=== PATIENT | female | born 1960 | race Caucasian/White ===

== ENCOUNTER 2017-04-18 04:59 | Emergency (ER) | payer OTHER ==
[2017-04-18 05:36] LABS: Basophils # (A) 0.1 k/uL (0-0.2); Basophils % (A) 0 %; CH 31.1; CHCM 35.1; Eosinophils # (A) 0.2 k/uL (0-0.7); Eosinophils % (A) 2 %; HCT 43.8 % (34.0-46.0); HDW 2.77; HGB 14.6 gm/dL (11.4-16.0); Luc # (Auto) 0.21; Luc % (Auto) 2; Lymphocytes # (A) 1.4 k/uL (1.0-4.8); Lymphocytes % (A) 11 %; MCH 29.6 pg (25.0-35.0); MCHC 33.2 g/dL (31.0-37.0); MCV 89.2 fL (80.0-100.0); Mean Platelet Volume 7.3; Monocytes % (A) 7 %; Neutrophils # (A) 10.2 k/uL (1.3-7.7); Neutrophils % (A) 78 %; RBC 4.91 m/uL (3.80-5.40); WBC 13.1 k/uL (3.8-10.6); WBC (Perox) 13.06
[2017-04-18 05:38] LABS: Appearance,Urine Cloudy (Clear); Bacteria,Urine Rare /hpf; Bilirubin,Urine Negative (Negative); Glucose,Urine (UA) Negative (Negative); Ketones,Urine Negative (Negative); Leukocyte Esterase,Urine Large (Negative); Mucus,Urine Occasional /hpf; Nitrite,Urine Negative (Negative); PH, Urine 6.5 (5.0-8.0); Particle Count 2672; Protein,Urine Negative (Negative); RBC,Urine 14 /hpf (0-5); Squamous Epithelial Cell,Urine 2 /hpf (0-4); UA Billing (MACRO vs. MICRO) MICRO; Urobilinogen,Urine <2.0 mg/dL (<2.0); WBC,Urine 29 /hpf (0-5)
[2017-04-18 05:48] LABS: Calcium 10.7 mg/dL (8.4-10.2); Total Bilirubin 0.4 mg/dL (0.2-1.3); Total Protein 7.2 g/dL (6.3-8.2)
[2017-04-18 05:57] LABS: Potassium 2.9 mmol/L (3.5-5.1)
[2017-04-18] MEDS ORDERED: KETOROLAC 30 MG/ML 1 ML VIAL IVP STA (06:05)
[2017-04-18] MEDS ORDERED: MORPHINE SULFATE 4 MG/ML SYRINGE IV STA (06:05)
[2017-04-18] MEDS ORDERED: ONDANSETRON 4 MG/2 ML VIAL IVP STA (06:05)
--- NOTE | 2017-04-18 06:11 | ED ---
Abdominal Pain HPI - General Source: patient Mode of arrival: ambulatory Limitations: no limitations - History of Present Illness MD Complaint: abdominal pain, flank pain Onset/Timin -: hour(s) Location: R flank Radiation: other (Right groin) Migration to: no migration Severity: severe Quality: sharp Consistency: colicky Improves With: nothing Worsens With: nothing Associated Symptoms: nausea, vomiting <Mario Mackenzie - Last Filed: 04/18/17 06:08> <Ruben Mckeon - Last Filed: 04/18/17 08:57> - General Chief Complaint: Abdominal Pain Stated Complaint: Possible Kidney Stone Time Seen by Provider: 04/18/17 05:10 - History of Present Illness Initial Comments: This patient is a 56-year-old woman who presents to be evaluated for flank pain. The patient states that she was awakened from sleep with the pain this morning little after 2 AM. She indicates the pain is in the right flank and going towards his right groin. She states it does remind her of last time she had a kidney stone. She states she also had some vomiting associated. She states that she cannot find a comfortable position. (Mario Mackenzie) - Related Data Previous Rx's Medication Instructions Recorded HYDROcodone/APAP 5-325MG [[place] 1 tab PO Q6HR PRN #24 tab 04/18/17 5-325] Potassium Chloride ER [K-Dur 20] 20 meq PO DAILY #7 tab 04/18/17 Sulfamethox-Tmp 800-160Mg [Bactrim 1 tab PO Q12HR #28 tab 04/18/17 DS 800-160 mg] Tamsulosin HCl [Flomax] 0.4 mg PO DAILY #30 cap 04/18/17 Allergies Allergy/AdvReac Type Severity Reaction Status Date / Time lisinopril Allergy Cough Verified 04/18/17 05:07 nitrofurantoin Allergy Rash/Hives Verified 04/18/17 05:07 [From Macrodantin] Review of Systems ROS Other: All systems not noted in ROS Statement are negative. Constitutional: Denies: fever, chills Respiratory: Denies: cough, dyspnea Cardiovascular: Denies: chest pain, palpitations, edema Gastrointestinal: Reports: as per HPI, abdominal pain, nausea, vomiting. Denies : diarrhea, melena, hematochezia Genitourinary: Denies: dysuria, hematuria Musculoskeletal: Denies: back pain Skin: Denies: rash Neurological: Denies: headache <AvrilMario - Last Filed: 04/18/17 06:08> ROS Other: All systems not noted in ROS Statement are negative. <Ruben Mckeon - Last Filed: 04/18/17 08:57> ROS Statement: Those systems with pertinent positive or pertinent negative responses have been documented in the HPI. Past Medical History Past Medical History: Hypertension Additional Past Medical History / Comment(s): kidney stones History of Any Multi-Drug Resistant Organisms: None Reported Additional Past Surgical History / Comment(s): lithotripsy Past Psychological History: No Psychological Hx Reported Smoking Status: Never smoker Past Alcohol Use History: Rare Past Drug Use History: None Reported <AvrilMario - Last Filed: 04/18/17 06:08> General Exam Limitations: no limitations General appearance: alert, in no apparent distress Head exam: Present: atraumatic, normocephalic Eye exam: Present: normal appearance. Absent: scleral icterus, conjunctival injection Respiratory exam: Present: normal lung sounds bilaterally. Absent: respiratory distress, wheezes, rales, rhonchi, stridor Cardiovascular Exam: Present: regular rate, normal rhythm, normal heart sounds. Absent: systolic murmur, diastolic murmur, rubs, gallop GI/Abdominal exam: Present: soft. Absent: distended, tenderness, guarding, rebound, mass, pulsatile mass, hernia Extremities exam: Present: normal inspection, normal capillary refill. Absent: pedal edema, calf tenderness Back exam: Present: normal inspection, CVA tenderness (R). Absent: CVA tenderness (L) Neurological exam: Present: alert Skin exam: Present: warm, dry, intact, normal color. Absent: rash <AvrilMario - Last Filed: 04/18/17 06:08> Medical Decision Making - Lab Data Result diagrams: 04/18/17 05:18 04/18/17 05:18 <Mario Mackenzie - Last Filed: 04/18/17 06:08> - Lab Data Result diagrams: 04/18/17 05:18 04/18/17 05:18 <Ruben Mckeon - Last Filed: 04/18/17 08:57> - Medical Decision Making 56-year-old female with history of kidney stones presents with right flank pain radiating to her groin. Patient's care was signed out from previous physician awaiting CT and lab results. CT was obtained shows 5 mm stone in the mid right ureter with mild hydronephrosis and hydroureter. Patient does have some mild signs of urinary tract infection and hematuria on urinalysis. Urine culture is obtained. Patient is pain-free on reevaluation. She did have 2 episodes of vomiting prior to arrival, or she's had no vomiting while in the emergency department. Creatinine is 1.5, no known baseline. Patient receives IV hydration and first dose of antibiotics while in the emergency department. I discussed the CT findings and laboratory results with the patient's urologist Dr. Carrizales, but feel the patient is stable for discharge. She will continue oral rehydration, she'll be started on oral antibiotics, given pain control and Flomax. She will call to make an appointment on Thursday. Patient is agreeable with this plan. Additional laboratory studies to reveal a potassium of 2.9 which is replaced. Diagnosis: Right kidney stone, mild hydronephrosis (Ruben Mckeon) - Lab Data Lab Results 04/18/17 04/18/17 04/18/17 Range/Units 05:10 05:18 05:18 WBC 13.1 H (3.8-10.6) k/uL RBC 4.91 (3.80-5.40) m/uL Hgb 14.6 (11.4-16.0) gm/dL Hct 43.8 (34.0-46.0) % MCV 89.2 (80.0-100.0) fL MCH 29.6 (25.0-35.0) pg MCHC 33.2 (31.0-37.0) g/dL RDW 15.0 (11.5-15.5) % Plt Count 286 (150-450) k/uL Neutrophils % 78 % Lymphocytes % 11 % Monocytes % 7 % Eosinophils % 2 % Basophils % 0 % Neutrophils # 10.2 H (1.3-7.7) k/uL Lymphocytes # 1.4 (1.0-4.8) k/uL Monocytes # 1.0 (0-1.0) k/uL Eosinophils # 0.2 (0-0.7) k/uL Basophils # 0.1 (0-0.2) k/uL Sodium 141 (137-145) mmol/L Potassium 2.9 L* (3.5-5.1) mmol/L Chloride 104 (98-107) mmol/L Carbon Dioxide 24 (22-30) mmol/L Anion Gap 13 mmol/L BUN 34 H (7-17) mg/dL Creatinine 1.50 H (0.52-1.04) mg/dL Est GFR (MDRD) Af Amer 44 (>60 ml/min/1.73 sqM) Est GFR (MDRD) Non-Af 36 (>60 ml/min/1.73 sqM) Glucose 130 H (74-99) mg/dL Calcium 10.7 H (8.4-10.2) mg/dL Total Bilirubin 0.4 (0.2-1.3) mg/dL AST 24 (14-36) U/L ALT 38 (9-52) U/L Alkaline Phosphatase 75 (38-126) U/L Total Protein 7.2 (6.3-8.2) g/dL Albumin 4.2 (3.5-5.0) g/dL Amylase 132 H (30-110) U/L Lipase 235 (23-300) U/L Urine Color Light Yellow Urine Appearance Cloudy H (Clear) Urine pH 6.5 (5.0-8.0) Ur Specific [place] 1.010 (1.001-1.035) Urine Protein Negative (Negative) Urine Glucose (UA) Negative (Negative) Urine Ketones Negative (Negative) Urine Blood Small H (Negative) Urine Nitrite Negative (Negative) Urine Bilirubin Negative (Negative) Urine Urobilinogen <2.0 (<2.0) mg/dL Ur Leukocyte Esterase Large H (Negative) Urine RBC 14 H (0-5) /hpf Urine WBC 29 H (0-5) /hpf Ur Squamous Epith Cells 2 (0-4) /hpf Urine Bacteria Rare H (None) /hpf Urine Mucus Occasional H (None) /hpf Disposition <Mario Mackenzie - Last Filed: 04/18/17 06:08> <Ruben Mckeon - Last Filed: 04/18/17 08:57> Clinical Impression: Calculus of kidney, Renal colic on right side, Hypokalemia Disposition: HOME SELF-CARE Condition: Good Instructions: Hypokalemia (ED), Kidney Stones (ED) Prescriptions: HYDROcodone/APAP 5-325MG [[place] 5-325] 1 tab PO Q6HR PRN #24 tab PRN Reason: Pain Potassium Chloride ER [K-Dur 20] 20 meq PO DAILY #7 tab Sulfamethox-Tmp 800-160Mg [Bactrim DS 800-160 mg] 1 tab PO Q12HR #28 tab Tamsulosin HCl [Flomax] 0.4 mg PO DAILY #30 cap Referrals: Feliciano Galeano MD [Primary Care Provider] - 1-2 days Edi Carrizales MD [STAFF PHYSICIAN] - 1-2 days
--- NOTE | 2017-04-18 06:27 | XR ---
EXAM: XR Abdomen, 1 View CLINICAL HISTORY: Reason: Pt. Woke up with sudden onset of Right Flank Pain. This a.m. Hx. Of kidney stones with lithotripsy TECHNIQUE: Frontal supine view of the abdomen/pelvis. COMPARISON: None FINDINGS: Abdomen: Nonobstructive bowel gas pattern. No free air. Cholecystectomy clips in the right upper quadrant. Moderate stool predominantly in the right colon. Nonspecific small densities projected over the right lower abdomen and nonspecific densities just superior to the left sacrum. Bones: Normal. Soft tissues: Probable calcified fibroid projects over the right pelvis. Other calcification in the superior left pelvis is nonspecific. Question other calcified fibroid versus calcification within bowel. Lower chest: Normal. IMPRESSION: 1. Nonspecific small densities projected in the lower abdomen bilaterally. The densities may be within bowel. There appear to lateral to be associated with the renal collecting systems. 2. Calcified uterine fibroid in the lower right pelvis. Calcification in the superior left pelvis may be within bowel as well. 3. Nonobstructive bowel gas pattern.
--- NOTE | 2017-04-18 07:38 | CT ---
EXAMINATION TYPE: CT abdomen pelvis wo con DATE OF EXAM: 04/18/2017 COMPARISON: NONE HISTORY: Flank pain-right side CT DLP: 340.8 mGycm Automated exposure control for dose reduction was used. FINDINGS: There is dependent atelectasis within the lungs. There is no pleural or pericardial fluid. The heart is mildly enlarged. Within the abdomen, the liver is mildly prominent measuring 19 cm. The gallbladder is been removed. T he spleen is unremarkable. Both adrenal glands are normal. There is bilateral nephrolithiasis. Largest calculus is in the lower pole on the left and measures 1. 9 cm. The left kidney is largely replaced with cysts. Some of these are ring calcified. There is right-sided hydronephrosis and hydroureter. There is a 5.3 mm calculus in the mid ureter on the right. Limited views of the pancreas appears normal. There is no significant retroperitoneal, inguinal or iliac adenopathy. The bladder appears somewhat thick walled but it is not distended. There is a 3.2 cm partially calcified uterine fibroid. The ovaries are not visualized with certainty. There are scattered diverticula within the sigmoid colon. There is no radiographic evidence of divert iculitis. The appendix is unremarkable. Small bowel loops are normal. There is no free fluid and no free air. There is a degenerative grade 1 spondylolisthesis of L4 on L5. No bony destructive lesion is seen. IMPRESSION: 1. BILATERAL NEPHROLITHIASIS. 2. PARTIALLY OBSTRUCTING 5.3 MM CALCULUS IN THE MID RIGHT URETER CAUSING MILD HYDRONEPHROSIS AND HYDR OURETER. 3. LEFT KIDNEY IS LARGELY REPLACED WITH CYSTIC CHANGE. THIS SHOULD BE FURTHER ASSESSED WITH ULTRASOUN D, CONTRAST CT OR MRI. 4. MILD CARDIOMEGALY. 5. HEPATOMEGALY. 6. CALCIFIED UTERINE FIBROID. 7. MINIMAL UNCOMPLICATED DIVERTICULOSIS. 8. DEGENERATIVE CHANGES WITHIN THE SPINE.
[2017-04-18] MEDS ORDERED: POTASSIUM CHLORIDE ER 20 MEQ TAB.ER PO STA (07:52)
[2017-04-18] MEDS ORDERED: SODIUM CHLORIDE 0.9% 1,000 ML IV ONE (07:54)
[2017-04-18] MEDS ORDERED: SODIUM CHLORIDE 0.9% 1,000 ML IV SCH (08:00)
[2017-04-18 09:21] VITALS: BP 147/91; PULSE 67; RESP 18; TEMP 97.6
== END 2017-04-18 09:25 | disposition home or self-care (01) ==
LOC: EC 04:59
DX: N13.2 Hydronephrosis with renal and ureteral calculous obstruction (principal); E87.6 Hypokalemia; N23 Unspecified renal colic; N13.4 Hydroureter; R11.2 Nausea with vomiting, unspecified; Z88.1 Allergy status to other antibiotic agents; Z88.8 Allergy status to other drugs, medicaments and biological substances; Z98.890 Other specified postprocedural states
CPT/HCPCS: 99284; 96374; 96375 ×2; 96361; 36415; 80053; 82150; 83690; 85025; 81001; 87086; 74000; 74176; J2270; J2405; J0696; J1885

== ENCOUNTER 2017-04-22 06:22 | Emergency (ER) | payer OTHER ==
[2017-04-22] MEDS ORDERED: RX INFO: IV CONTRAST WAS GIVEN 1 EACH MISC MISCELLANE PRN ×2 (06:25→06:42)
[2017-04-22] MEDS ORDERED: ONDANSETRON 4 MG/2 ML VIAL IVP STA (06:46)
[2017-04-22] MEDS ORDERED: KETOROLAC 60 MG/2 ML VIAL IVP STA (06:46)
[2017-04-22] MEDS ORDERED: HYDROmorphone 1 MG/ML 1 ML SYRINGE IVP STA ×2 (06:46→07:51)
--- NOTE | 2017-04-22 06:46 | ED ---
General Adult HPI - General Source: EMS, RN notes reviewed Mode of arrival: wheelchair Limitations: no limitations <José Miguel Carolina - Last Filed: 04/22/17 06:47> <Tristin Watters - Last Filed: 04/22/17 09:12> - General Chief complaint: Back Pain/Injury Stated complaint: Back Pain Time Seen by Provider: 04/22/17 06:30 - History of Present Illness Initial comments: This is a 56-year-old female who states 4 days ago she was here in the emergency department for a kidney stone. Patient states 2 days after that she was here in the emergency department because she fell while painting and hurt her right side. Patient states the pain is gotten worse since yesterday. Patient states the pain appears to be under the right ribs in the right upper quadrant area and in the flank and lower back. Patient denies any vomiting. Patient states movement of any kind seems to make the pain worse lying still does help the pain for a while until she moves or coughs or takes a deep breath. Patient states last night she took a [place] but it did not take the pain away. Patient states this morning she developed Flexeril and a tramadol and that has not helped her. (José Miguel Carolina) - Related Data Home Medications Medication Instructions Recorded Confirmed Aspirin EC [Ecotrin Low Dose] 81 mg PO DAILY 04/20/17 04/22/17 Cholecalciferol [Vitamin D3] 5,000 unit PO DAILY 04/20/17 04/22/17 Hydrochlorothiazide [Hydrodiuril] 25 mg PO DAILY 04/20/17 04/22/17 NIFEdipine [Procardia XL] 60 mg PO DAILY 04/20/17 04/22/17 [place]-3 Fatty Acids/Fish Oil [Fish 1 cap PO DAILY 04/20/17 04/22/17 Oil 1,000 mg Softgel] Ondansetron HCl [Zofran] 4 mg PO DAILY PRN 04/22/17 04/22/17 Sulfamethox-Tmp 800-160Mg [Bactrim 1 tab PO DAILY 04/22/17 04/22/17 DS 800-160 mg] traMADol HCL [Ultram] 50 mg PO DAILY PRN 04/22/17 04/22/17 Previous Rx's Medication Instructions Recorded HYDROcodone/APAP 5-325MG [[place] 1 tab PO Q6HR PRN #24 tab 04/18/17 5-325] Potassium Chloride ER [K-Dur 20] 20 meq PO DAILY #7 tab 04/18/17 Cyclobenzaprine [Flexeril] 10 mg PO TID #15 tab 04/20/17 Tamsulosin [Flomax] 0.4 mg PO DAILY #14 cap 04/22/17 Allergies Allergy/AdvReac Type Severity Reaction Status Date / Time lisinopril Allergy Cough Verified 04/22/17 07:27 nitrofurantoin Allergy Rash/Hives Verified 04/22/17 07:27 [From Macrodantin] Review of Systems ROS Other: All systems not noted in ROS Statement are negative. <José Miguel Carolina - Last Filed: 04/22/17 06:47> ROS Other: All systems not noted in ROS Statement are negative. <Tristin Watters - Last Filed: 04/22/17 09:12> ROS Statement: Those systems with pertinent positive or pertinent negative responses have been documented in the HPI. Past Medical History Past Medical History: Hypertension Additional Past Medical History / Comment(s): kidney stones History of Any Multi-Drug Resistant Organisms: None Reported Additional Past Surgical History / Comment(s): lithotripsy Past Psychological History: No Psychological Hx Reported Smoking Status: Never smoker Past Alcohol Use History: Rare Past Drug Use History: None Reported <José Miguel Carolina - Last Filed: 04/22/17 06:47> General Exam Limitations: no limitations <José Miguel Carolina - Last Filed: 04/22/17 06:47> <Tristin Watters - Last Filed: 04/22/17 09:12> - General Exam Comments Initial Comments: GENERAL: Patient is well-developed and well-nourished. Patient is nontoxic and well- hydrated and is in mild distress. ENT: Neck is soft and supple. No significant lymphadenopathy is noted. Oropharynx is clear. Moist mucous membranes. Neck has full range of motion without eliciting any pain. EYES: The sclera were anicteric and conjunctiva were pink and moist. Extraocular movements were intact and pupils were equal round and reactive to light. Eyelids were unremarkable. PULMONARY: Unlabored respirations. Good breath sounds bilaterally. No audible rales rhonchi or wheezing was noted. CARDIOVASCULAR: There is a regular rate and rhythm without any murmurs gallops or rubs. ABDOMEN: Patient has tenderness in the right upper quadrant as well as the lateral right ribs 11 and 12. SKIN: Skin is clear with no lesions or rashes and otherwise unremarkable. NEUROLOGIC: Patient is alert and oriented x3. Cranial nerves II through XII are grossly intact. Motor and sensory are also intact. Normal speech, volume and content. Symmetrical smile. MUSCULOSKELETAL: Normal extremities with adequate strength and full range of motion. LYMPHATICS: No significant lymphadenopathy is noted PSYCHIATRIC: Normal psychiatric evaluation. (José Miguel Carolina) Medical Decision Making <José Miguel Carolina - Last Filed: 04/22/17 06:47> - Lab Data Result diagrams: 04/22/17 06:45 04/22/17 06:45 - Radiology Data Radiology results: report reviewed (Computed tomography scan of the abdomen and pelvis shows resolution of right-sided hydronephrosis and perinephric stranding. Suspect passage of right ureter calculi. 12 mm distal ureter with left sided hydronephrosis.) <Tristin Watters - Last Filed: 04/22/17 09:12> - Medical Decision Making Dr. Watters will be taking over the care of this patient at 7 AM (José Miguel Carolina) Patient again reexamined and is starting to improve at this time. Patient is able to move in bed now and has been able to get some rest. Patient is comfortable with discharge home. Patient is advised need for close follow-up with primary care physician as well as urology. (Tristin Watters) - Lab Data Lab Results 04/22/17 04/22/17 Range/Units 06:45 06:45 WBC 8.4 (3.8-10.6) k/uL RBC 4.73 (3.80-5.40) m/uL Hgb 14.3 (11.4-16.0) gm/dL Hct 42.9 (34.0-46.0) % MCV 90.7 (80.0-100.0) fL MCH 30.1 (25.0-35.0) pg MCHC 33.2 (31.0-37.0) g/dL RDW 13.6 (11.5-15.5) % Plt Count 289 (150-450) k/uL Neutrophils % 76 % Lymphocytes % 13 % Monocytes % 6 % Eosinophils % 3 % Basophils % 0 % Neutrophils # 6.4 (1.3-7.7) k/uL Lymphocytes # 1.1 (1.0-4.8) k/uL Monocytes # 0.5 (0-1.0) k/uL Eosinophils # 0.2 (0-0.7) k/uL Basophils # 0.0 (0-0.2) k/uL Sodium 144 (137-145) mmol/L Potassium 3.2 L (3.5-5.1) mmol/L Chloride 102 (98-107) mmol/L Carbon Dioxide 29 (22-30) mmol/L Anion Gap 13 mmol/L BUN 19 H (7-17) mg/dL Creatinine 1.10 H (0.52-1.04) mg/dL Est GFR (MDRD) Af Amer >60 (>60 ml/min/1.73 sqM) Est GFR (MDRD) Non-Af 52 (>60 ml/min/1.73 sqM) Glucose 119 H (74-99) mg/dL Calcium 10.6 H (8.4-10.2) mg/dL Total Bilirubin 0.5 (0.2-1.3) mg/dL AST 106 H (14-36) U/L ALT 201 H (9-52) U/L Alkaline Phosphatase 162 H (38-126) U/L Total Protein 7.6 (6.3-8.2) g/dL Albumin 4.3 (3.5-5.0) g/dL Disposition <José Miguel Carolina - Last Filed: 04/22/17 06:47> Time of Disposition: 09:11 <Tristin Watters - Last Filed: 04/22/17 09:12> Clinical Impression: Ureterolithiasis, Abdominal contusion Disposition: HOME SELF-CARE Condition: Stable Instructions: Kidney Stones (ED), Blunt Abdominal Injury (ED) Additional Instructions: Please follow-up with urology and your primary care physician in the next day or 2 for recheck. Return for fever, increased pain, vomiting, change or worsening symptoms or other concerns. Prescriptions: Tamsulosin [Flomax] 0.4 mg PO DAILY #14 cap Referrals: Feliciano Galeano MD [Primary Care Provider] - 1-2 days Edi Carrizales MD [STAFF PHYSICIAN] - 1-2 days
[2017-04-22 06:56] LABS: Basophils % (A) 0 %; CHCM 33.2; Eosinophils # (A) 0.2 k/uL (0-0.7); Eosinophils % (A) 3 %; HCT 42.9 % (34.0-46.0); HDW 2.73; HGB 14.3 gm/dL (11.4-16.0); Luc # (Auto) 0.15; Luc % (Auto) 2; Lymphocytes # (A) 1.1 k/uL (1.0-4.8); Lymphocytes % (A) 13 %; MCH 30.1 pg (25.0-35.0); MCHC 33.2 g/dL (31.0-37.0); MCV 90.7 fL (80.0-100.0); Monocytes # (A) 0.5 k/uL (0-1.0); Monocytes % (A) 6 %; Neutrophils # (A) 6.4 k/uL (1.3-7.7); Neutrophils % (A) 76 %; RBC 4.73 m/uL (3.80-5.40); RDW 13.6 % (11.5-15.5); WBC 8.4 k/uL (3.8-10.6); WBC (Perox) 8.04
[2017-04-22 07:04] LABS: ALT 201 U/L (9-52); AST 106 U/L (14-36); Alkaline Phosphatase 162 U/L (38-126); Anion Gap 13 mmol/L; Blood Urea Nitrogen 19 mg/dL (7-17); Calcium 10.6 mg/dL (8.4-10.2); Carbon Dioxide 29 mmol/L (22-30); Chloride 102 mmol/L (98-107); Glucose 119 mg/dL (74-99); Non-African American GFR(MDRD) 52 (>60 ml/min/1.73 sqM); Potassium 3.2 mmol/L (3.5-5.1); Sodium 144 mmol/L (137-145); Total Bilirubin 0.5 mg/dL (0.2-1.3); Total Protein 7.6 g/dL (6.3-8.2)
--- NOTE | 2017-04-22 07:37 | CT ---
EXAMINATION TYPE: CT abdomen pelvis w con DATE OF EXAM: 04/22/2017 HISTORY: RLQ pain and back pain CT DLP: 1556mGycm Automated Exposure Control for Dose Reduction was Utilized. CONTRAST: CT scan of the abdomen and pelvis is performed with IV Contrast, patient injected with 100 mL of Omni paque 300. COMPARISON: CT abdomen and pelvis from 4 days ago. FINDINGS: LUNG BASES: There is cardiomegaly with dependent atelectasis bilaterally, there is additional areas o f atelectasis and/or consolidation in the right lung base. Findings have progressed from prior. LIVER/GB: There is 2 cm hyperdense oval lesion right hepatic lobe laterally on axial image 18, this b ecomes isodense to draining hepatic veins on delayed phased images, suspect flash filling hemangioma. This corresponds to hypodense lesion on CT 4 days ago. PANCREAS: No significant abnormality is seen. SPLEEN: No significant abnormality is seen. ADRENALS: Slight thickening to left adrenal gland favors benign hyperplasia. KIDNEYS: There are calculi scattered throughout both kidneys. There are a few small simple appearing cysts scattered throughout right kidney. There is cortical medullary uptake and excretion from right kidney. There is advanced left-sided hydronephrosis with delayed excretion left kidney. There is redemonstrat ion of obstructing 12 mm calculus in distal left ureter on coronal image 52 unchanged in size and helena earance from prior. Suspect marked calyceal dilatation mimicking cyst, there also are likely some sim ple cortical cysts present. BOWEL: Normal-appearing appendix is seen from cecum. There is no suspicious small or large bowel dila tation identified. There is prominence of fecal material in the right colon. Evaluation bowel is subo ptimal secondary to lack of enteric contrast. There is poor distention of colon distal to splenic fle xure making evaluation at this level suboptimal. There is suggestion of suspicious focal wall thicken ing in the distal transverse colon noted on event planner image and coronal image 25 but this is favored spas m as exam 4 days ago shows no suspicious abnormality at this level. UTERUS/ADNEXA: Uterus is anteverted in shape, there is redemonstration of lobulated calcified fibroid along right aspect. LYMPH NODES: No greater than 1cm abdominal or pelvic lymph nodes are appreciated. OSSEOUS STRUCTURES: There is persistent grade 1 anterolisthesis of L4 on L5. OTHER: No significant additional abnormality is seen. IMPRESSION: 1. Note is made of a 12 mm obstructing distal ureter calculus causing advanced left-sided hydronephro sis and delayed excretion from left kidney. Interval resolution of right-sided hydronephrosis and per inephric fat stranding noted. Suspect interval passage of right ureter calculus. Clinical correlation advised. Normal-appearing appendix is noted.
[2017-04-22] MEDS ORDERED: ORPHENADRINE 30 MG/ML 2 ML VIAL IVP STA (07:51)
[2017-04-22 08:07] VITALS: PULSE 78; RESP 16
[2017-04-22 09:34] VITALS: BP 150/88; TEMP 97.8
== END 2017-04-22 09:32 | disposition home or self-care (01) ==
LOC: EC 06:22
DX: S30.1XXA Contusion of abdominal wall, initial encounter (principal); N20.1 Calculus of ureter; Z79.82 Long term (current) use of aspirin; Z79.899 Other long term (current) drug therapy; Z88.8 Allergy status to other drugs, medicaments and biological substances; W19.XXXA Unspecified fall, initial encounter; Y93.89 Activity, other specified
CPT/HCPCS: 99284; 96374; 96375 ×3; 96376; 36415; 80053; 85025; 74177; J2360; J2405; J1885; J1170; Q9967

== ENCOUNTER → 2017-06-23 | Outpatient (CLI) | payer OTHER ==
--- NOTE | 2017-06-24 07:23 | NM ---
EXAMINATION TYPE: NM renal flow and function DATE OF EXAM: 06/23/2017 COMPARISON: CT abdomen and pelvis April 22, 2017 HISTORY: Left kidney failure, left renal stent removed a few weeks ago. Following administration of 10.4 mCi Tc99m MAG3. Immediate images post injection. FINDINGS: Left: 22.4 %. Right: 77.6 %. Max renal flow left: 29 minutes. Max renal flow right: 77.6 minutes. Satisfactory accumulation of radiotracer within both renal collecting systems. T 1/2 left: NA - Not established within imaging duration parameters . T 1/2 right: 22.8 minutes . FINDINGS: Dynamic arterial images show asymmetric diminished flow and subsequent cortical medullary uptake into left kidney versus opposite right kidney. No excretion is identified in time frame observed in the l eft kidney versus the right kidney. IMPRESSION: Delayed and diminished function 2 left kidney remains present despite suspected interval treatment of left ureter calculus.
== END | disposition home or self-care (01) ==
LOC: RADNMMAIN 12:41
PROVIDERS: ATTEND Urology
DX: N13.30 Unspecified hydronephrosis (principal)
CPT/HCPCS: 78707; A9562

== ENCOUNTER → 2017-10-23 | Outpatient (CLI) | payer OTHER ==
--- NOTE | 2017-10-23 11:16 | XR ---
EXAMINATION TYPE: XR KUB DATE OF EXAM: 10/23/2017 HISTORY: Pain Comparison: None.Single KUB is submitted for interpretation. Findings: Right renal calculi: At least 2 calculi lower pole right kidney measuring up to 5 mm. Right ureteral calculi: None Visualized. Left renal calculi: Large calculus overlying the left kidney measures 2.8 x 1.2 cm. Left ureteral calculi: None Visualized. Pelvic calcifications: Large calcified leiomyoma within the pelvis. Bowel gas pattern is unremarkable. No free air. No mass effects. IMPRESSION: 1. Nephrolithiasis is noted.
== END | disposition home or self-care (01) ==
LOC: RADXRMAIN 10:33
PROVIDERS: ATTEND Urology
DX: N20.0 Calculus of kidney (principal)
CPT/HCPCS: 74018

== ENCOUNTER → 2017-11-02 | Outpatient (CLI) | payer OTHER ==
--- NOTE | 2017-11-02 21:58 | MR ---
EXAMINATION TYPE: MR lumbar spine wo/w con DATE OF EXAM: 11/02/2017 COMPARISON: CT 04/22/2017 HISTORY: 57-year-old female with low back pain and bilateral leg pain Technique: Multiplanar, multisequence images of the lumbar spine were obtained before and after admin istration of 10 mL intravenous Gadavist gadolinium contrast. FINDINGS: Vertebral body heights are preserved. Severe hypertrophic facet arthropathy lower lumbar spine with grade 1 anterolisthesis at L4-L5. Other martin, lumbar alignment is maintained. A few fatty matrix hemangioma such as within T11 and L3 vertebral bodies. No suspicious bone marrow r eplacement. Conus medullaris is normal. Mild degenerative disc disease L3-L4 and L4-L5 characterized by variable disc desiccation and mild di sc interspace narrowing. From T12 through L3 levels, no spinal canal or foraminal stenosis. At L3-L4, there is facet degenerative change with minimal bilateral inferior neuroforaminal narrowing . No significant spinal canal stenosis. At L4-L5, there is anterolisthesis with severe facet arthropathy and ligamentum flavum thickening and uncovering of the posterior intervertebral disc. Changes result in severe spinal canal stenosis with minimal bilateral inferior neural foraminal narrowing. At L5-S1, there is hypertrophic facet arthropathy without significant canal or foraminal stenosis. No abnormal enhancement within the spinal canal. There is grossly abnormal appearance to the left kidney that appears to relate to chronic severe left -sided hydronephrosis when correlated with the 04/22/2017 CT numerous small renal cysts are present on the right. Otherwise, no prevertebral or paravertebral soft tissue abnormality. IMPRESSION: 1. Grade 1 anterolisthesis at L4-L5 is secondary to severe hypertrophic facet arthropathy. In additio n to ligamentum flavum thickening, the spondylolisthesis contributes to a severe spinal canal stenosi s at this level. Minimal bilateral neuroforaminal narrowing here. 2. Continued severe left-sided hydronephrosis. Consider urology referral if not already performed. Mu ltiple small right-sided renal cysts.
== END | disposition home or self-care (01) ==
LOC: RADMRIMAIN 19:31
PROVIDERS: ATTEND Family Medicine
DX: M48.061 Spinal stenosis, lumbar region without neurogenic claudication (principal); M99.73 Connective tissue and disc stenosis of intervertebral foramina of lumbar region; M43.16 Spondylolisthesis, lumbar region; M46.86 Other specified inflammatory spondylopathies, lumbar region
CPT/HCPCS: 82565; 72158; 36415; A9581